=== PATIENT | female | born 1990 | race Caucasian/White ===

== ENCOUNTER → 2017-04-07 17:27 | Observation (INO) ==
[2017-04-07 14:36] LABS: Basophils % 0.2 %; Eosinophils # 0.1 K/mcL (0.0-0.6); Eosinophils % 1.1 %; Hematocrit 36.5 % (35.3-44.9); Hemoglobin 12.4 g/dL (11.5-15.4); Immature Granulocytes % 0.5 % (0-4); Lymphocytes # 1.6 K/mcL (0.6-4.6); Lymphocytes % 15.6 %; Mean Corpuscular Hemoglobin 29.1 pg (28.0-33.3); Mean Corpuscular Volume 85.7 fL (83.0-100.0); Mean Platelet Volume 10.8 fL (9.4-12.4); Monocytes # 0.5 K/mcL (0.0-1.3); Neutrophils # 8.1 K/mcL (1.6-8.9); Platelet Count 230 K/mcL (140-400); Red Blood Count 4.26 M/mcL (3.82-4.97); Red Cell Distribution Width 14.9 % (11.5-14.5); Segmented Neutrophils % 77.6 %
[2017-04-07 15:31] LABS: Protein/Creatinine Ratio,Urine 0.18 mg/mg (0.00-0.20)
--- NOTE | 2017-04-07 15:41 | OB/GYN Progress Note ---
Date of Encounter: 04/07/17 Time of Encounter: 15:51 - Assessment and Plan (1) Edema during in third trimester Current Visit: Yes Status: Acute Plan: - PIH labs negative - induction scheduled for Thursday - Pt safe for discharge home, with labor precautions, when to return to triage or call provider. Pt verbalizes understanding. (2) NST (non-stress test) reactive Current Visit: Yes Status: Acute FHR baseline= 140 (3) 39 weeks gestation of Current Visit: Yes Status: Acute Subjective - Subjective Principal diagnosis: edema Interval history: Patient is a 26-year-old at 39+1 weeks presented to labor and delivery from the office after having increase in pedal and facial edema and not feeling good. Patient denies nausea, vomiting, vision changes, abdominal pain. Reports active movement. Patient denies vaginal bleeding, contractions, or leakage of fluid. Antepartum ROS: movement normal Objective - Vital Signs Vital Signs: Intake and Output 04/06/17 04/07/17 04/07/17 23:59 07:59 15:59 Other: Weight 157.26 kg Patient Weight 04/07/17 23:59 Weight 157.26 kg - Exam FHR: category 1 FHR comments: FHR baseline= 140 Auscultation: bilateral: normal Abdomen: Present: normal appearance, soft Uterus: Present: normal Cervical dilation: 1-2 Cervix effacement: 80 station: -2 Comments: per Evans Castellanos - Labs Labs: Abnormal lab results RDW 14.9 % (11.5-14.5) H 04/07/17 14:18
[2017-04-07 16:53] LABS: Alanine Aminotransferase 17 Units/L (7-52); Aspartate Amino Transferase 21 Units/L (13-39); BUN/Creatinine Ratio 21 (6-26); Blood Urea Nitrogen 12 mg/dL (6-20); Lactate Dehydrogenase 198 Units/L (140-271); Uric Acid 4.2 mg/dL (2.3-7.6); eGFR For African Americans > 60 (> 60); eGFR For Non-African Americans > 60 (> 60)
[2017-04-08 08:12] LABS: Amphetamine Screen,Urine Negative ng/mL (Cutoff=1000); Barbiturate Screen,Urine Negative ng/mL (Cutoff=200); Benzodiazepines Screen,Urine Negative ng/mL (Cutoff=200); Cannabinoid Screen,Urine Negative ng/mL (Cutoff = 50); Cocaine Screen,Urine Negative ng/mL (Cutoff= 300); Opiate Screen,Urine Negative ng/mL (Cutoff=300); Phencyclidine Screen,Urine Negative ng/mL (Cutoff=25)
== END | disposition home or self-care (01) ==
LOC: 1NENULAB
PROVIDERS: ADMIT Obstetrics & Gynecology; ATTEND Obstetrics & Gynecology

== ENCOUNTER 2017-04-10 04:00 | Inpatient (IN) ==
[2017-04-10] MEDS ORDERED: Famotidine 20 MG/2 ML VIAL IVP PRN (04:33)
[2017-04-10] MEDS ORDERED: Naloxone 0.4 MG/ML INJ IVP PRN (04:33)
[2017-04-10] MEDS ORDERED: miSOPROStol 100 MCG TABLET PO ONE (04:45)
[2017-04-10] MEDS ORDERED: Vancomycin 1,000 MG in D5% in Water 250 ML IVPB SCH (05:00)
[2017-04-10] MEDS ORDERED: miSOPROStol 100 MCG TABLET PO PRN (05:03)
[2017-04-10 05:17] LABS: Basophils % 0.3 %; Eosinophils # 0.2 K/mcL (0.0-0.6); Eosinophils % 1.9 %; Hematocrit 36.2 % (35.3-44.9); Immature Granulocytes % 0.6 % (0-4); Lymphocytes # 1.9 K/mcL (0.6-4.6); Lymphocytes % 18.6 %; Mean Corpuscular HGB Conc 33.1 g/dL (31.6-35.5); Mean Corpuscular Volume 87.4 fL (83.0-100.0); Monocytes # 0.6 K/mcL (0.0-1.3); Monocytes % 5.5 %; Neutrophils # 7.3 K/mcL (1.6-8.9); Platelet Count 225 K/mcL (140-400); Red Blood Count 4.14 M/mcL (3.82-4.97); Red Cell Distribution Width 14.8 % (11.5-14.5); Segmented Neutrophils % 73.1 %
[2017-04-10 05:21] LABS: Amphetamine Screen,Urine Negative ng/mL (Cutoff=1000); Barbiturate Screen,Urine Negative ng/mL (Cutoff=200); Benzodiazepines Screen,Urine Negative ng/mL (Cutoff=200); Cannabinoid Screen,Urine Negative ng/mL (Cutoff = 50); Cocaine Screen,Urine Negative ng/mL (Cutoff= 300); Opiate Screen,Urine Negative ng/mL (Cutoff=300); Phencyclidine Screen,Urine Negative ng/mL (Cutoff=25)
--- NOTE | 2017-04-10 05:32 | OB/GYN History & Physical ---
Date of Encounter: 04/10/17 Time of Encounter: 05:28 Assessment and Plan (1) macrosomia affecting management of mother, antepartum Current visit: Yes Status: Acute Admit for IOL. Plan for cytotec induction. Vertex presentation SVE 1-/-2 GBS positive- plan for vancomycin ppx (2) Obesity complicating in third trimester Current visit: Yes Status: Acute (3) 39 weeks gestation of Current visit: No Status: Acute (4) Positive GBS test Current visit: Yes Status: Acute (5) BMI 40.0-44.9, adult Current visit: Yes Status: Acute History of Present Illness Chief complaint: IOL, macrosomia, 39 weeks HPI: Ms. Cesar is a 26 year old female presenting at 39w4d for IOL due to macrosomia. US on 04/07/17 with EFW 9lbs 1oz (>90%). The has been complicated by obesity. No other complications. GBS positive. Blood type O positive Rubella and varicella immune serologies negative Past Med Surg Social Fam HX - Past Medical History Medical history: no medical history Psychiatric history: no psych history - Past Surgical History Surgical History: no surgical history - Social History Smoking Status: Never smoker Smokeless Tobacco Status: No Alcohol use: none Drug use: none - Family History Mother Living Status: Still Living Hx Family Cardiac Disorders: No Hx Family Respiratory Disorders: No Hx Family Cancer: No Hx Family GI Disorders: No Hx Family Endocrine Disorder: No Hx Family Neuromuscular Disorders: No Hx Family Neurologic Disorders: No Hx Family HEENT Disorders: No Hx Family Autoimmune Disorders: No Obstetrical History - Pregnancies : 1 Medications and Allergies Vit Calc,Iron,Folic [ Vitamins] 1 each PO DAILY 04/07/17 [ History] 3 Allergy/AdvReac Type Severity Reaction Status Date / Time Amoxicillin [From Amoxil] Allergy Rash Verified 04/10/17 05:05 Review of System OB All systems PM: reviewed and no additional remarkable complaints except as stated Exam - Constitutional Constitutional: well developed, well nourished, no acute distress - HEENT HEENT: Mucus Membranes Moist - Lungs Respiratory exam: CTAB - Cardiovascular Cardiovascular exam: RRR - Abdomen Abdomen: Present: gravid, non tender - Extremities Extremities exam: pedal edema (2+ bilaterally to just below the knees) - Vulva Vulva: bilateral: normal - Vagina Vagina: Present: normal moisture - Cervix Dilation: 2 (1-2) Effacement: 70 Station: -2 - Anus/Rectum Anus/Rectum: Present: normal perianal skin Results Result Diagrams: 04/10/17 04:55 Abnormal lab results RDW 14.8 % (11.5-14.5) H 04/10/17 04:55 All other labs normal. - VTE Reasons for not Prescribing Prophylaxis: Treatment not Indicated - Low risk for VTE
[2017-04-10] MEDS: Ringers Solution, Lactated 1,000 ML IVC SCH ×2 (05:33→12:09)
[2017-04-10 06:41] LABS: Protein/Creatinine Ratio,Urine 0.71 mg/mg (0.00-0.20)
[2017-04-10 07:31] LABS: Alanine Aminotransferase 13 Units/L (7-52); Aspartate Amino Transferase 17 Units/L (13-39); BUN/Creatinine Ratio 22 (6-26); Blood Urea Nitrogen 13 mg/dL (6-20); Lactate Dehydrogenase 161 Units/L (140-271); Uric Acid 4.2 mg/dL (2.3-7.6); eGFR For African Americans > 60 (> 60); eGFR For Non-African Americans > 60 (> 60)
--- NOTE | 2017-04-10 08:22 | OB Labor Progress Note ---
Date of Encounter: 04/10/17 Time of Encounter: 08:16 Labor Progress Note - Subjective Subjective: The patient is here for an induction of labor. She is comfortable and does not appreciate her contractions. She does report increasing facial edema along with lower extremity edema that has been present previously. Ultrasound on 04/07 showed an anterior grade 2-3 placenta estimated weight of 9 lbs. 1 oz., FERNANDA of 9.7. The patient has an unfavorable cervix it is here for induction of labor due to her risk factors of morbid obesity, BMI 53.7 today, and LGA fetus . She has been started on vancomycin for her positive GBS culture and penicillin allergy. - Vital Signs Vital Signs: Blood pressure 145/78, vital signs stable, afebrile - Cervix Cervix: 1-2/90/-2, vertex - Heart Tones Heart Tones: 130s baseline, CAT 1 - Bee Bee: Contractions irregular with external toco - Interventions Interventions: 39 week IUP with preeclampsia, protein creatinine ratio 0.71, large for gestational age fetus with estimated weight of 9 lbs. 1 oz. an unfavorable cervix. The station is -2 in a primiparous woman. I had discussion with the patient about my recommendation that she proceed with an elective section due to her risk factors for a shoulder dystocia and cephalopelvic disproportion. The patient is agreeable. - Plan Plan: Informed consent obtained to proceed with a primary section. Patient is currently nothing by mouth. Last meal 0330 today
[2017-04-10] MEDS ORDERED: Metoclopramide 10 MG/2 ML VIAL IVP PRN ×2 (09:14→15:41)
--- NOTE | 2017-04-10 09:34 | Event Note ---
Date of Encounter: 04/10/17 Time of Encounter: 09:33 The patient reports and has been confirmed by nursing staff, spontaneous rupture of membranes. Patient has been consented for a and now will progress to an emergent , due to changes status. Anesthesia informed of plan of care
[2017-04-10] MEDS ORDERED: Morphine Sulfate/PF 5mg/10mL Vial ONE (09:37)
[2017-04-10] MEDS ORDERED: *HR* FentaNYL (PF) 100 MCG/2 ML VIAL ONE (09:37)
[2017-04-10] MEDS ORDERED: EPHEDrine 50 MG/ML VIAL ONE (09:37)
[2017-04-10] MEDS ORDERED: Water for inj. (sterile) 10 ML IV ONE (09:38)
[2017-04-10] MEDS ORDERED: *HR* Oxytocin 10 UNIT/ML VIAL IM ONE ×2 (09:40→10:50)
[2017-04-10] MEDS ORDERED: *HR* Phenylephrine 10 MG/ML VIAL ONE (10:10)
[2017-04-10] MEDS ORDERED: MetroNIDAZOLE 500 MG/100 ML 500 MG/100 ML BAG IVPB STA (10:38)
--- NOTE | 2017-04-10 10:42 | Anesthesia Evaluation PreOp ---
Date of Encounter: 04/10/17 Time of Encounter: 09:20 - Past History Planned Operation: primary c section Cardiac History: Denies any Significant Hx, Other (pre eclampsia recently diagnosed.) Pulmonary History: Denies Any Significant HX [employer] History: Denies Any Significant HX Other Medical History: Other (MO BMI 54) Anesthesia History: No Prior Anesthetic Complications, Past Anesthesia (exc. benign tumor shoulder. No problems with GA. No FHAP.) Alcohol Use: none Drug use: none Medications and Allergies Vit Calc,Iron,Folic [ Vitamins] 1 each PO DAILY 04/07/17 [ History] 3 Allergy/AdvReac Type Severity Reaction Status Date / Time Amoxicillin [From Amoxil] Allergy Rash Verified 04/10/17 05:05 - Meds/Allergy Pre-op Review Medications Reviewed: Yes Allergies Reviewed: Yes Beta Blockers on Current Med List: No Anesthesia Results - Labs 04/10/17 04:55 04/10/17 06:53 Anesthesia Exam vss and FHTs stable Height: 5'6" Weight: 155 kg NPO (# of Hours): 6 Pain Scale: 8 Pain Scale Used: Numeric (1 - 10) - HEENT Pupil (Motor): Pupils equal, EOMI Mallampati: III Teeth: Normal Oral Opening: Greater than 3 - [employer]ONRY [employer] LOC: Oriented [employer] Motor: Normal RUE, Normal LUE, Normal RLE, Normal LLE, Normal Face [employer] Sensory: Normal: RUE, LUE, RLE, LLE, Face - Cardiac Rhythm: Regular - Pulmonary Breath Sounds: bilateral Clear Respiratory Effort: Symmetrical Anesthesia Assess/Plan ASA Score: 3 Modified Bay Scale for Level of Consciousness: Cooperative, oriented, and tranquil Anesthetic Plan: Regional Monitoring Plan: Standard Monitors Recovery Plan: PACU
[2017-04-10] MEDS ORDERED: Ondansetron 4 MG/2 ML VIAL IVP ONE (10:47)
[2017-04-10] MEDS ORDERED: *HR* Promethazine 25 MG/ML VIAL IVP PRN (10:47)
[2017-04-10] MEDS ORDERED: Acetaminophen IV 1,000 MG/100 ML INFUS..BTL IVPB ONE (10:48)
[2017-04-10] MEDS ORDERED: Ringers Solution, Lactated 2,000 ML ONE (10:50)
--- NOTE | 2017-04-10 11:25 | OB/GYN Procedure Note ---
Section - Date of procedure: 04/10/17 Preop diagnosis: other (Suspected macrosomia, maternal preeclampsia, BMI 54, patient request for , spontaneous rupture of membranes) Post-op diagnosis: other (Same, distress with heart tones in the 80s at the time of abdominal prep) Procedure: section, primary low transverse Surgeon: Chelita Cardona Estimated blood loss (cc): 400 Was there an title i instructional assistant present: Yes Traveling Buyer: Shasta Burns Anesthesiologist: Temi Clark Office Runner: Mandie Vincent Anesthesia Type: Spinal section complications: none Disposition: L&D Recovery Room Specimens: Placenta, Cord segment, Cord blood - Infant (s) A Delivery Date: 04/10/17 Delivery Time: 10:23 Presentation: vertex Route of delivery: other Gender: Male Viability: Viable Pounds: 8 Ounces: 0 at 1 minute: 9 at 5 minutes: 9 Specimens collected: cord blood Placenta: spontaneous, uterine exploration Cord: 3 umbilical vessels - Narrative Narrative: The patient was taken to the operating room for a requested primary section. She was given spinal anesthesia adequate for abdominal surgery. During the vaginal prep heart tones were monitored to drop into the 80s. Decision was made to proceed with an emergent and Betadine was used for an emergent prep and the patient was draped in the usual sterile fashion. Timeout was completed. The patient was tested and found to have adequate anesthesia with her spinal anesthesia. A Pfannenstiel skin incision was made and sharply dissected down to the fascia. The fascia was sharply incised with a scalpel in the midline and bluntly extended bilaterally. The rectus muscles were bluntly bisected and the peritoneum was bluntly entered. The incision was then bluntly extended. Bladder blade was placed protected bladder. Vesicouterine peritoneum was sharply incised with Metzenbaum scissors and extended sharply bilaterally. Bladder flap was created and the bladder blade was then placed to protect the bladder. A low transverse incision was then made with the scalpel down to the amnion and this is bluntly extended bilaterally. The amnion was then entered with Allis clamps. A vigorous infant was then delivered and bulb suctioned on the operating field. Cord was clamped and cut after a delay and the was handed to the nursery care team. Cord segment was obtained for gases, need for which would be determined later. Cord blood was obtained. The placenta was delivered spontaneous and intact. It was sent to be held by pathology. The uterine cavity was digitally inspected and noted to be free of any retained products of conception. The uterine cavity is wiped clean with a moist lap sponge. Clamps were placed on the uterine incision. The incision was then closed using 0 Vicryl suture in a running locking fashion. This incision was then closed with a second 0 Vicryl suture in an imbricating fashion. Good hemostasis was noted. Tubes and ovaries were inspected and found to be grossly normal. The abdomen is irrigated copiously with sterile water. Peritoneal edges and rectus muscles were inspected and good hemostasis was achieved. The fascia was closed using an 0 PDS loop in a running nonlocking fashion. Subcutaneous tissues tissue was irrigated with sterile water and hemostasis was achieved. This layer was closed with a 3-0 Monocryl in a running nonlocking fashion. The skin was closed with 4-0 Monocryl in a subcuticular fashion. A dressing was applied to the incision. All sponge and instrument counts are correct at the end of the procedure. Quintero was noted to be draining clear yellow urine at the end of the procedure. Patient was taken to recovery room in stable condition.
[2017-04-10] MEDS ORDERED: Oxytocin 20 units/ LR 1000 mL 20 UNIT/1,000 ML BAG IVC ONE (12:01)
[2017-04-10] MEDS ORDERED: *HR* OxyCODONE/APAP 5/325 TABLET PO PRN (12:39)
[2017-04-10] MEDS ORDERED: Ondansetron 4 MG/2 ML VIAL IVP PRN ×2 (12:39→15:41)
[2017-04-10] MEDS ORDERED: Ibuprofen 400 MG TABLET PO PRN (12:39)
--- NOTE | 2017-04-10 12:42 | Anesthesia Evaluation Post Op ---
Date of Encounter: 04/10/17 Time of Encounter: 12:41 - Vital Signs Vital Signs: VSS - Lungs Lungs: Clear Ascult./Percussion - Airway Airway: Non-obstructed - Cardiovascular Regular Rate - Mental Status Mental Status: Alert & Oriented, Answers Appropriately - Pain Pain Scale: 0 Pain Scale used: Numeric (1 - 10) - Nausea Vomiting Nausea Vomiting: Not Present - Hydration Hydration: NPO, Quintero catheter - Discharge PostOp Status: Transfer Patient to floor
[2017-04-10] MEDS ORDERED: Sennosides 8.6 MG TABLET PO PRN (15:41)
[2017-04-10] MEDS ORDERED: Oxytocin 20 units/ LR 1000 mL 20 UNIT/1,000 ML BAG IVC SCH ×2 (15:41)
[2017-04-10] MEDS ORDERED: Simethicone 80 MG TAB.CHEW PO PRN (15:41)
[2017-04-10] MEDS ORDERED: Rho Immune Globulin 1,500 UNIT SYRINGE IM ONE (15:41)
[2017-04-10] MEDS ORDERED: Ondansetron 4 MG/2 ML VIAL ONE (15:44)
[2017-04-10] MEDS: Ibuprofen 600 MG TABLET PO PRN (20:28)
[2017-04-10] MEDS: Clindamycin 900 MG/50 ML 900 MG/50 ML IV.SOLN IVPB SCH (22:46)
[2017-04-10] MEDS: MetroNIDAZOLE 500 MG/100 ML 500 MG/100 ML BAG IVPB SCH (23:48)
[2017-04-11] MEDS ORDERED: Ringers Solution, Lactated 500 ML IVC ONE (01:12)
[2017-04-11] MEDS: Ibuprofen 600 MG TABLET PO PRN ×2 (04:57→16:19)
[2017-04-11] MEDS: Clindamycin 900 MG/50 ML 900 MG/50 ML IV.SOLN IVPB SCH (06:44)
[2017-04-11 07:45] LABS: Basophils % 0.2 %; Eosinophils # 0.1 K/mcL (0.0-0.6); Eosinophils % 0.6 %; Hematocrit 30.6 % (35.3-44.9); Immature Granulocytes % 0.5 % (0-4); Immature Platelets 4.3 % (1.1-6.1); Lymphocytes # 1.2 K/mcL (0.6-4.6); Mean Corpuscular HGB Conc 33.3 g/dL (31.6-35.5); Mean Corpuscular Hemoglobin 29.3 pg (28.0-33.3); Mean Corpuscular Volume 87.9 fL (83.0-100.0); Mean Platelet Volume 10.4 fL (9.4-12.4); Monocytes # 0.7 K/mcL (0.0-1.3); Monocytes % 6.1 %; Platelet Count 184 K/mcL (140-400); Red Blood Count 3.48 M/mcL (3.82-4.97); Red Cell Distribution Width 15.2 % (11.5-14.5); Segmented Neutrophils % 81.6 %
[2017-04-11 07:54] LABS: Hemoglobin 10.2 g/dL (11.5-15.4)
[2017-04-11] MEDS: MetroNIDAZOLE 500 MG/100 ML 500 MG/100 ML BAG IVPB SCH (08:07)
[2017-04-11 08:18] LABS: Alanine Aminotransferase 11 Units/L (7-52); Aspartate Amino Transferase 23 Units/L (13-39); BUN/Creatinine Ratio 20 (6-26); Blood Urea Nitrogen 12 mg/dL (6-20); Lactate Dehydrogenase 232 Units/L (140-271); Uric Acid 4.9 mg/dL (2.3-7.6); eGFR For African Americans > 60 (> 60); eGFR For Non-African Americans > 60 (> 60)
[2017-04-11] MEDS ORDERED: Prenatal Vit/FA 1 EACH TABLET PO SCH (09:00)
--- NOTE | 2017-04-11 09:15 | OB/GYN Progress Note ---
Date of Encounter: 04/11/17 Time of Encounter: 09:12 - Assessment and Plan (1) Status post primary low transverse section Current Visit: Yes Status: Acute Continue routine postop/ care (2) Breast feeding status of mother Current Visit: Yes Status: Acute support prn Subjective - Subjective Principal diagnosis: Postop day 1 primary c/s for nonreassuring FHT Interval history: Quintero catheter is out. Patient has not been up to void. Patient is tolerating PO well. Patient reports pain is well controlled at this time. Patient reports: appetite normal, pain well controlled, ambulating normally : doing well, nursing well Objective - Vital Signs Latest vital signs: Vital Signs Temp Pulse Resp BP Pulse Ox 04/11/17 04:50 97.8 F 86 16 124/84 98 04/11/17 00:00 98.1 F 93 20 116/78 96 04/10/17 20:30 97.8 F 91 24 126/82 99 04/10/17 15:45 98.0 F 98 15 134/86 96 04/10/17 14:15 83 18 119/73 98 04/10/17 13:45 97.9 F 94 18 132/85 97 Intake and Output 04/10/17 04/11/17 04/11/17 23:59 07:59 15:59 Intake Total 1050 / 1050 1200 / 1200 50 / 50 Output Total 500 / 500 800 / 800 Balance 550 / 550 400 / 400 50 / 50 Intake: IV Fluids 50 / 50 600 / 600 50 / 50 Lactated Ringers 500 ML @ 1000 500 / 500 mls/hr IVC .Q30M ONE Rx#: [id number] Cleocin Premix 900 MG/50 ML 900 50 / 50 50 / 50 mg In 50 ml @ 50 mls/hr IVPB Q8HR [facility] Rx#:[id number] Flagyl Premix 500 MG/100 ML 500 100 / 100 mg In 100 ml @ 100 mls/hr IVPB Q8HR [facility] Rx#:[id number] Oral 600 / 600 Other 1000 / 1000 Output: Catheter 500 / 500 800 / 800 Other: Weight 153.768 kg Patient Weight 04/11/17 23:59 Weight 153.768 kg - Exam Lungs: bilateral: normal Extremities: Present: normal Abdomen: Present: normal appearance, soft Incision: Present: normal, dry, dressed (Harshil dressing) Uterus: Present: normal, firm Fundal Height: 2 (U/2) - Labs Labs: Laboratory Results - last 24 hr 04/11/17 04/11/17 07:31 07:31 WBC 11.0 RBC 3.48 L Hgb 10.2 L D Hct 30.6 L MCV 87.9 MCH 29.3 MCHC 33.3 RDW 15.2 H Plt Count 184 MPV 10.4 Immature Gran % 0.5 Seg Neutrophils % 81.6 Lymphocytes % 11.0 Monocytes % 6.1 Eosinophils % 0.6 Basophils % 0.2 Neutrophils # 9.0 H Lymphocytes # 1.2 Monocytes # 0.7 Eosinophils # 0.1 Basophils # 0.0 Immature Plt Fraction 4.3 BUN 12 Creatinine 0.59 L Est GFR ( Amer) > 60 Est GFR (Non-Af Amer) > 60 BUN/Creatinine Ratio 20 Uric Acid 4.9 AST 23 ALT 11 Lactate Dehydrogenase 232
[2017-04-11] MEDS: *HR* OxyCODONE/APAP 5/325 TABLET PO PRN ×2 (12:28→21:09)
[2017-04-11] MEDS: metroNIDAZOLE 500 MG TABLET PO SCH ×2 (18:31→21:09)
[2017-04-12] MEDS: *HR* OxyCODONE/APAP 5/325 TABLET PO PRN ×2 (05:20→13:59)
[2017-04-12 08:25] VITALS: BP 126/88
[2017-04-12] MEDS: metroNIDAZOLE 500 MG TABLET PO SCH (08:54)
[2017-04-12] MEDS: Ibuprofen 600 MG TABLET PO PRN (08:55)
--- NOTE | 2017-04-12 09:25 | Discharge Summary ---
Date of Encounter: 04/12/17 Time of Encounter: 09:26 - Discharge Diagnosis (1) Adult BMI 50.0-59.9 kg/sq m Priority: Secondary Status: Chronic Comments: Patient has been offered dietary consult during . We will observe weight loss at visit. Further discussion of diet and exercise at that time (2) Obesity, morbid, BMI 50 or higher Priority: Secondary Status: Chronic Comments: Patient was significant health risks due to morbid obesity. Dietary consultation has been offered during . This will be further evaluated a visit (3) Obesity complicating in third trimester Priority: Secondary Status: Acute Comments: Patient received a dose for dietary evaluation and sleep studies during . (4) Status post primary low transverse section Priority: Primary Status: Acute Comments: Patient is doing well postoperatively. She is meeting milestones. She is requesting discharge. She is tolerating a regular diet, ambulating, return of bowel function, good pain control with oral pain medications and voiding without difficulty (5) 39 weeks gestation of Priority: Secondary Status: Acute - Discharge Medications Prescriptions: OxyCODONE/APAP 5/325 [Percocet 5/325 MG] 1 each PO Q4HR PRN 7 Days #40 tablet PRN Reason: Moderate pain 4-6 Clindamycin [Cleocin] 300 mg PO Q6HR #20 capsule Ibuprofen [Motrin] 600 mg PO Q6HR PRN #40 tablet PRN Reason: acute post operative pain metroNIDAZOLE [Flagyl] 500 mg PO BID #10 tablet Home Medications: Vit Calc,Iron,Folic [ Vitamins] 1 each PO DAILY 04/07/17 [ History] Clindamycin [Cleocin] 300 mg PO Q6HR #20 capsule 04/12/17 [Rx] Ibuprofen [Motrin] 600 mg PO Q6HR PRN #40 tablet 04/12/17 [Rx] OxyCODONE/APAP 5/325 [Percocet 5/325 MG] 1 each PO Q4HR PRN 7 Days #40 tablet [Rx] metroNIDAZOLE [Flagyl] 500 mg PO BID #10 tablet 04/12/17 [Rx] Allergies/Adverse Reactions: 3 Allergy/AdvReac Type Severity Reaction Status Date / Time Amoxicillin [From Amoxil] Allergy Rash Verified 04/10/17 05:05 Data Procedures and tests throughout hospitalization: Laboratory Tests 02/11/1704/10/17 04/10/17 04:55 04:55 06:24 WBC 10.0 RBC 4.14 Hgb 12.0 Hct 36.2 MCV 87.4 MCH 29.0 MCHC 33.1 RDW 14.8 H Plt Count 225 MPV 11.0 Immature Gran % 0.6 Seg Neutrophils % 73.1 Lymphocytes % 18.6 Monocytes % 5.5 Eosinophils % 1.9 Basophils % 0.3 Neutrophils # 7.3 Lymphocytes # 1.9 Monocytes # 0.6 Eosinophils # 0.2 Basophils # 0.0 Immature Plt Fraction BUN Creatinine Est GFR ( Amer) Est GFR (Non-Af Amer) BUN/Creatinine Ratio Uric Acid AST ALT Lactate Dehydrogenase Urine Creatinine 212 Protein/Creatinin Ratio 0.71 H Urine Total Protein 150 Urine Opiates Screen Negative Ur Barbiturates Screen Negative Ur Phencyclidine Scrn Negative Ur Amphetamines Screen Negative U Benzodiazepines Scrn Negative Urine Cocaine Screen Negative U Marijuana (THC) Screen Negative Specimen Rejected 04/10/17 04/10/17 04/11/17 06:41 06:53 07:31 WBC 11.0 RBC 3.48 L Hgb 10.2 L D Hct 30.6 L MCV 87.9 MCH 29.3 MCHC 33.3 RDW 15.2 H Plt Count 184 MPV 10.4 Immature Gran % 0.5 Seg Neutrophils % 81.6 Lymphocytes % 11.0 Monocytes % 6.1 Eosinophils % 0.6 Basophils % 0.2 Neutrophils # 9.0 H Lymphocytes # 1.2 Monocytes # 0.7 Eosinophils # 0.1 Basophils # 0.0 Immature Plt Fraction 4.3 BUN 13 Creatinine 0.59 L Est GFR ( Amer) > 60 Est GFR (Non-Af Amer) > 60 BUN/Creatinine Ratio 22 Uric Acid 4.2 AST 17 ALT 13 Lactate Dehydrogenase 161 Urine Creatinine Protein/Creatinin Ratio Urine Total Protein Urine Opiates Screen Ur Barbiturates Screen Ur Phencyclidine Scrn Ur Amphetamines Screen U Benzodiazepines Scrn Urine Cocaine Screen U Marijuana (THC) Screen Specimen Rejected Hemolyzed 04/11/17 07:31 WBC RBC Hgb Hct MCV MCH MCHC RDW Plt Count MPV Immature Gran % Seg Neutrophils % Lymphocytes % Monocytes % Eosinophils % Basophils % Neutrophils # Lymphocytes # Monocytes # Eosinophils # Basophils # Immature Plt Fraction BUN 12 Creatinine 0.59 L Est GFR ( Amer) > 60 Est GFR (Non-Af Amer) > 60 BUN/Creatinine Ratio 20 Uric Acid 4.9 AST 23 ALT 11 Lactate Dehydrogenase 232 Urine Creatinine Protein/Creatinin Ratio Urine Total Protein Urine Opiates Screen Ur Barbiturates Screen Ur Phencyclidine Scrn Ur Amphetamines Screen U Benzodiazepines Scrn Urine Cocaine Screen U Marijuana (THC) Screen Specimen Rejected Date of admission: 04/10/17 04:09 Primary care physician: Dottie Antony Discharging clinician: Chelita Cardona Anticipated date of discharge: 04/12/17 - Patient Status Disposition: Home, Self-Care Condition: Good Functional capacity at discharge: independent ambulation Overall status at discharge: patient is progressing back to baseline - Discharge Instructions Follow Up With: Dottie Antony MD [Primary Care Provider] - Additional Instructions: Pelvic rest, no lifting greater than baby in carrier. No driving for 2 weeks. Follow-up in 2 weeks for postop check. 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 Reason for admission: other (Induction of labor, morbid obesity at 39 weeks) Post op complications: None Discharge diagnosis: other (Same, status post section) Procedures: Primary section Hospital course: Uncomplicated, patient meeting milestones Time Attestation: Total time spent providing and/or coordinating discharge services: Time Spent: Less than 30 minutes Specific discharge activities: Pelvic rest, no lifting or driving Exam - Constitutional Vitals: Temp Pulse Resp BP Pulse Ox 98.2 F 104 16 126/88 98 04/12/17 07:40 04/12/17 07:40 04/12/17 07:40 04/12/17 07:40 04/12/17 07:40 General appearance IM: cooperative, A&O X 3, morbidly obese, pleasant, no acute distress, answers questions appropriately - Respiratory Respiratory exam: Present: CTAB - Cardiovascular Cardiovascular exam IM: Present: RRR - GI/Abdominal GI/Abdominal exam IM: normal bowel sounds, soft, no peritoneal signs Incision: dry, dressed - Rectal Rectal exam: deferred - Uterus Position: 2 Fingers Below Umbilicus - Extremities Exam Extremities exam IM: Present: normal inspection, warm. Absent: tenderness - Neurological Exam Neurological exam: no focal deficits - VTE Reasons for not Prescribing Prophylaxis: Treatment not Indicated - Low risk for VTE Documentation of Mechanical Device: Intermittent pneumatic compression device
== END 2017-04-12 17:48 | disposition home or self-care (01) | DRG 765 ==
LOC: 1NENULAB 04:09 → 1NENUOBS 13:46
PROVIDERS: ADMIT Obstetrics & Gynecology; ATTEND Obstetrics & Gynecology

== ENCOUNTER 2021-01-16 04:55 | Inpatient (IN) ==
[2021-01-16] MEDS ORDERED: Famotidine 20 MG/2 ML VIAL IVP ONE (05:01)
[2021-01-16] MEDS ORDERED: Metoclopramide 10 MG/2 ML VIAL IVP ONE (05:01)
[2021-01-16] MEDS ORDERED: Ringers Solution, Lactated 1,000 ML IVC ONE (05:01)
[2021-01-16 06:25] LABS: Basophils % 0.2 %; Eosinophils # 0.2 K/mcL (0.0-0.6); Eosinophils % 2.1 %; Hematocrit 39.1 % (35.3-44.9); Hemoglobin 13.2 g/dL (11.5-15.4); Immature Granulocytes % 0.8 % (0-4); Lymphocytes # 2.1 K/mcL (0.6-4.6); Lymphocytes % 22.3 %; Mean Corpuscular HGB Conc 33.8 g/dL (31.6-35.5); Mean Corpuscular Hemoglobin 29.8 pg (28.0-33.3); Mean Corpuscular Volume 88.3 fL (83.0-100.0); Mean Platelet Volume 10.9 fL (9.4-12.4); Monocytes # 0.5 K/mcL (0.0-1.3); Monocytes % 5.2 %; Neutrophils # 6.4 K/mcL (1.6-8.9); Platelet Count 220 K/mcL (140-400); Red Blood Count 4.43 M/mcL (3.82-4.97); Red Cell Distribution Width 13.8 % (11.5-14.5); Segmented Neutrophils % 69.4 %; White Blood Count 9.2 K/mcL (4.3-11.1)
[2021-01-16 06:53] LABS: Adenovirus Not Detected (Not Detect); Bordetella Pertussis Not Detected (Not Detect); Chlamydophila pneumoniae Not Detected (Not Detect); Coronavirus 229E Not Detected (Not Detect); Coronavirus HKU1 Not Detected (Not Detect); Coronavirus NL63 Not Detected (Not Detect); Coronavirus OC43 Not Detected (Not Detect); Human Metapneumovirus Not Detected (Not Detect); Human Rhinovirus/Enterovirus Not Detected (Not Detect); Influenza A Subtype 2009 H1 Not Detected (Not Detect); Influenza B Not Detected (Not Detect); Mycoplasma pneumoniae Not Detected (Not Detect); Parainfluenza Virus 1 Not Detected (Not Detect); Parainfluenza Virus 2 Not Detected (Not Detect); Parainfluenza Virus 3 Not Detected (Not Detect); Parainfluenza Virus 4 Not Detected (Not Detect); Respiratory Syncytial Virus Not Detected (Not Detect); SARS-CoV-2 Not Detected (Not Detect)
[2021-01-16] MEDS ORDERED: CEFAZOLIN IVP ONE (07:18)
[2021-01-16] MEDS ORDERED: WATER FOR INJ IVP ONE (07:18)
[2021-01-16] MEDS ORDERED: Ringers Solution, Lactated 1,000 ML ONE (07:21)
[2021-01-16] MEDS ORDERED: *HR* Phenylephrine 10 MG/ML VIAL ONE (07:22)
[2021-01-16] MEDS ORDERED: Ondansetron 4 MG/2 ML VIAL ONE (07:22)
[2021-01-16] MEDS ORDERED: *HR* FentaNYL (PF) 100 MCG/2 ML VIAL ONE (07:23)
[2021-01-16] MEDS ORDERED: *HR* Morphine Sulfate/PF 10 MG/10 ML AMPUL ONE (07:23)
[2021-01-16] MEDS ORDERED: *HR* OxyCODONE Immed Rel 5 MG TABLET PO PRN (08:23)
[2021-01-16] MEDS ORDERED: Promethazine 6.25 MG in Water for inj. (sterile) 20 ML IVPB PRN (08:23)
[2021-01-16] MEDS ORDERED: Naloxone 0.4 MG/ML INJ IVP PRN (08:23)
[2021-01-16] MEDS ORDERED: *HR* FentaNYL (PF) 100 MCG/2 ML VIAL IVP PRN (08:23)
[2021-01-16] MEDS ORDERED: Acetaminophen IV 1,000 MG/100 ML BAG IVPB ONE (08:35)
[2021-01-16] MEDS ORDERED: Ketorolac 30 MG/ML VIAL ONE (09:07)
[2021-01-16] MEDS ORDERED: Ondansetron 4 MG/2 ML VIAL IVP PRN (09:24)
[2021-01-16] MEDS ORDERED: Rho Immune Globulin 1,500 UNIT SYRINGE IM ONE (09:24)
[2021-01-16] MEDS ORDERED: Simethicone 80 MG TAB.CHEW PO PRN (09:24)
[2021-01-16] MEDS ORDERED: Metoclopramide 10 MG/2 ML VIAL IVP PRN (09:24)
[2021-01-16] MEDS ORDERED: Oxytocin 20 units/ LR 1000 mL 20 UNIT/1,000 ML BAG IVC SCH (09:30)
[2021-01-16 11:07] LABS: Amphetamine Screen,Urine Negative ng/mL (Cutoff=1000); Barbiturate Screen,Urine Negative ng/mL (Cutoff=200); Benzodiazepines Screen,Urine Negative ng/mL (Cutoff=200); Cannabinoid Screen,Urine Negative ng/mL (Cutoff = 50); Cocaine Screen,Urine Negative ng/mL (Cutoff= 300); Opiate Screen,Urine Negative ng/mL (Cutoff=300); Phencyclidine Screen,Urine Negative ng/mL (Cutoff=25)
[2021-01-16] MEDS: cephALEXin 500 MG CAPSULE PO SCH ×2 (15:05→20:57)
[2021-01-16] MEDS: Acetaminophen 325 MG TABLET PO SCH ×2 (15:06→20:55)
[2021-01-16] MEDS: Ibuprofen 600 MG TABLET PO SCH ×2 (15:06→20:56)
[2021-01-16] MEDS: *HR* Enoxaparin 80 MG/0.8 ML SYRINGE SQ SCH (20:58)
[2021-01-17] MEDS: Ibuprofen 600 MG TABLET PO SCH ×3 (02:41→15:30)
[2021-01-17 04:13] LABS: Basophils % 0.2 %; Eosinophils % 0.2 %; Hemoglobin 10.8 g/dL (11.5-15.4); Immature Granulocytes % 0.6 % (0-4); Lymphocytes # 2.7 K/mcL (0.6-4.6); Lymphocytes % 18.8 %; Mean Corpuscular HGB Conc 32.7 g/dL (31.6-35.5); Mean Corpuscular Hemoglobin 29.6 pg (28.0-33.3); Mean Corpuscular Volume 90.4 fL (83.0-100.0); Mean Platelet Volume 10.6 fL (9.4-12.4); Monocytes # 1.1 K/mcL (0.0-1.3); Monocytes % 7.8 %; Neutrophils # 10.5 K/mcL (1.6-8.9); Platelet Count 207 K/mcL (140-400); Red Blood Count 3.65 M/mcL (3.82-4.97); Red Cell Distribution Width 12.4 % (11.5-14.5); Segmented Neutrophils % 72.4 %; White Blood Count 14.5 K/mcL (4.3-11.1)
[2021-01-17] MEDS: Azithromycin 250 MG TABLET PO SCH (08:43)
[2021-01-17] MEDS: Acetaminophen 325 MG TABLET PO SCH ×2 (08:43→15:30)
[2021-01-17] MEDS: cephALEXin 500 MG CAPSULE PO SCH ×3 (08:44→20:31)
[2021-01-17] MEDS: Prenatal Vit/FA 1 EACH TABLET PO SCH (08:44)
[2021-01-17] MEDS: *HR* Enoxaparin 80 MG/0.8 ML SYRINGE SQ SCH ×2 (08:44→20:30)
[2021-01-17] MEDS: Acetaminophen/Butalbital/CaffeineTABLET PO PRN ×2 (12:30→20:31)
[2021-01-17 15:03] LABS: Protein/Creatinine Ratio,Urine 0.37 mg/mg (0.00-0.20)
[2021-01-17] MEDS: *HR* OxyCODONE Immed Rel 5 MG TABLET PO PRN ×2 (15:30→20:42)
[2021-01-17] MEDS: Acetaminophen/Aspirin/Caffeine TABLET PO PRN (17:00)
[2021-01-17] MEDS ORDERED: Ondansetron ODT 4 MG TAB.RAPDIS SL PRN (20:02)
[2021-01-18 00:07] VITALS: O2SAT 99
[2021-01-18] MEDS: Ibuprofen 600 MG TABLET PO SCH ×2 (00:16→05:29)
[2021-01-18] MEDS: Acetaminophen/Aspirin/Caffeine TABLET PO PRN ×2 (00:16→08:32)
[2021-01-18] MEDS: *HR* OxyCODONE Immed Rel 5 MG TABLET PO PRN (05:29)
[2021-01-18] MEDS: *HR* Enoxaparin 80 MG/0.8 ML SYRINGE SQ SCH (08:33)
[2021-01-18] MEDS: Prenatal Vit/FA 1 EACH TABLET PO SCH (08:33)
[2021-01-18] MEDS: cephALEXin 500 MG CAPSULE PO SCH (08:33)
[2021-01-18] MEDS: Azithromycin 250 MG TABLET PO SCH (08:33)
[2021-01-18 08:56] VITALS: BP 114/75; PULSE 78; TEMP 98
== END 2021-01-18 13:00 | disposition home or self-care (01) | DRG 785 ==
LOC: 1NENULAB 04:55 → 1NENUOBS 11:40
PROVIDERS: ADMIT Obstetrics & Gynecology; ATTEND Obstetrics & Gynecology